=== PATIENT | female | born 1940 | race American Indian/Alaskan Native ===

== ENCOUNTER 2019-04-13 05:47 | Outpatient (CLI) | payer MEDICARE, MEDICAID | END 2019-04-13 05:48 | disposition home or self-care (01) | LOC: CARDIO 05:47 | DX: R07.9 Chest pain, unspecified (principal) ==

== ENCOUNTER 2019-04-20 09:31 | Inpatient (IN) | payer MEDICARE, MEDICAID ==
--- NOTE | 2019-04-20 10:19 | RAD ---
Date of service: 04/20/2019 HISTORY: chest pain COMPARISON: No prior. TECHNIQUE: 1 view obtained. FINDINGS: LUNGS: No active pulmonary disease. PLEURA: No significant pleural effusion identified, no pneumothorax apparent. CARDIOVASCULAR: No aortic atherosclerotic calcification present. Mild to moderate cardiomegaly no pulmonary vascular congestion. OSSEOUS STRUCTURES: No significant abnormalities. VISUALIZED UPPER ABDOMEN: Normal. OTHER FINDINGS: None. IMPRESSION: No active disease.
[2019-04-20] MEDS ORDERED: DOBUTamine 500mg/250ml D5W 500 MG/250 ML BAG IV PRN (10:20)
[2019-04-20 10:23] LABS: BASO # 0.02 K/mm3 (0.0-2.0); BASO % 0.4 % (0.0-3.0); EOS % 0.7 % (1.5-5.0); HEMOGLOBIN 8.7 g/dL (12.0-16.0); LYMPH # 0.9 (1.2-3.4); LYMPH % 16.2 % (22.0-35.0); MEAN CELL VOLUME 84.4 fl (80.0-105.0); MEAN CORPUSCULAR HEMOGLOBIN 27.6 pg (25.0-35.0); MEAN CORPUSCULAR HGB CONC 32.7 g/dl (31.0-37.0); MEAN PLATELET VOLUME 10.6 fl (7.0-11.0); MONO # 0.8 (0.1-0.6); MONO % 13.6 % (1.0-6.0); RBC 3.15 10^6/uL (3.5-6.1); RED CELL DISTRIBUTION WIDTH 14.4 % (11.5-14.5); WHITE BLOOD COUNT 5.5 10^3/uL (4.5-11.0)
[2019-04-20 10:32] LABS: ALB/GLOB RATIO 1.1 (1.1-1.8); ALBUMIN 3.4 g/dL (3.0-4.8); CALCIUM 8.6 mg/dL (8.4-10.5)
[2019-04-20 10:50] LABS: TROPONIN I 0.02 ng/mL
[2019-04-20 11:17] VITALS: BMI 22.6
[2019-04-20] MEDS: DOBUTamine 500mg/250ml D5W 500 MG/250 ML BAG IV PRN (11:36)
--- NOTE | 2019-04-20 14:29 | CON ---
DATE OF CONSULTATION: 04/20/2019 CARDIOLOGY CONSULTATION HISTORY: The patient is a 79-year-old woman, who presents with progressive fatigue and renal insufficiency. Her stress test done recently revealed an ejection fraction of 25% with multiple defects consistent with previous injury. In addition, she was found to have a creatinine of 2.3, which reveals progressive renal insufficiency. In addition, she suffers from atrial fibrillation, for which she was on Eliquis as well as diltiazem. Her cardiac risk factors include diabetes mellitus and hypercholesterolemia. SOCIAL HISTORY: Denies smoking. REVIEW OF SYSTEMS: Dominated by marked fatigue. PHYSICAL EXAMINATION: VITAL SIGNS: Blood pressure 158/88, the heart rate is in the 80s. NECK: Negative JVD. LUNGS: Decreased breath sounds bilaterally. CARDIAC: Heart reveals S1, S2. EXTREMITIES: 1 to 2+ edema. LABORATORY DATA: EKG reveals normal sinus rhythm with LVH and diffuse ST-T changes. BUN and creatinine are 49 and 2.3. Potassium is 3.3. The hemoglobin is 8.7. IMPRESSION: 1. Dilated cardiomyopathy. 2. Probably ischemic in nature. 3. Coronary artery disease. 4. Anemia. 5. Renal insufficiency. 6. Diabetes mellitus. 7. Hypercholesterolemia. 8. Hypertension. 9. Progressive lethargy consistent with low cardiac output syndrome. PLAN: Given these findings, the patient will be admitted and started on IV inotropic therapy. I have discussed this in detail with the patient, as well as the patient's daughter. We will continue her on her Eliquis as well as Cardizem. Juanjo Agustin MD
--- NOTE | 2019-04-20 14:38 | ED PDOC ---
Arrival/HPI - General Chief Complaint: Abnormal Labs Time Seen by Provider: 04/20/19 09:34 Historian: Patient - History of Present Illness Narrative History of Present Illness (Text): 04/20/19 14:40 A 79 year old female, whose past medical history includes hypertension, renal disorder, diabetes type 2, anemia, cardiac issues, dilated cardiomyopathy, brought in from the medical lab assistant, presents to the emergency department complaining of worsening renal function. Patient reports she was scheduled for elective cardiac catheterization today, however canceled due to GFR. Patient denies any other physical/symptomatic complaints. Past Medical History - Provider Review Nursing Documentation Reviewed: Yes - Infectious Disease Hx of Infectious Diseases: None - Reproductive Menopause: Yes - Cardiac Hx Cardiac Disorders: Yes Hx Hypertension: Yes - Pulmonary Hx Bronchitis: No Hx Chronic Obstructive Pulmonary Disease (COPD): No Hx Emphysema: No Hx Pneumonia: No Hx Sleep Apnea: No - Neurological Hx Dementia: No Hx Migraine: No Hx Parkinson's Disease: No Hx Seizures: No Hx Transient Ischemic Attacks (TIA): No - HEENT Hx HEENT Disorder: Yes Hx Blind: Yes - Renal Hx Renal Disorder: Yes - Endocrine/Metabolic Hx Diabetes Mellitus Type 2: Yes - Hematological/Oncological Hx Anemia: Yes Hx Blood Transfusions: Yes (R/T ANEMIA) Hx Blood Transfusion Reaction: No - Integumentary Hx Dermatological Disorder: No - Musculoskeletal/Rheumatological Hx Musculoskeletal Disorders: No - Gastrointestinal Hx Crohn's Disease: No Hx Diverticulitis: No Hx Gall Bladder Disease: No Hx Pancreatitis: No - Genitourinary/Gynecological Hx Sexually Transmitted Diseases: No - Psychiatric Hx Emotional Abuse: No Hx Physical Abuse: No Hx Substance Use: No - Surgical History Hx Appendectomy: No Hx Cholecystectomy: No Hx Coronary Stent: No - Anesthesia Hx Anesthesia Reactions: No Hx Malignant Hyperthermia: No - Suicidal Assessment Feels Threatened In Home Enviroment: No Family/Social History - Physician Review Nursing Documentation Reviewed: Yes Family/Social History: No Known Family HX Smoking Status: Never Smoked Hx Alcohol Use: No Hx Substance Use: No Allergies/Home Meds Allergies/Adverse Reactions: Allergies sacubitril [From Entresto] Allergy (Verified 04/17/19 16:23) ANAPHYLAXIS valsartan [From Entresto] Allergy (Verified 04/20/19 09:46) ANAPHYLAXIS haloperidol [From Haldol] Adverse Reaction (Verified 04/20/19 18:24) DIZZINESS risperidone [From Risperdal] Adverse Reaction (Verified 04/20/19 18:24) DIZZINESS Home Medications: Home Meds Medication Instructions Recorded Confirmed B Complex W-C No.20/Folic Acid 1 sgl PO DAILY 10/04/15 04/20/19 [Renal Caps Softgel] Furosemide [Lasix] 20 mg PO DAILY 08/18/16 04/20/19 Apixaban [Eliquis] 2.5 mg PO BID 07/13/17 04/20/19 Colesevelam HCl [Welchol] 3.75 gm PO DAILY 07/13/17 04/20/19 Linagliptin [Tradjenta] 5 mg PO DAILY 07/13/17 04/20/19 Diltiazem HCl [Diltiazem 24Hr Cd] 120 mg PO QAM 04/13/19 04/20/19 Patiromer Calcium Sorbitex 8.4 gm PO DAILY 04/13/19 04/20/19 [Veltassa] hydrALAZINE [Apresoline] 50 mg PO BID 04/13/19 04/20/19 Clopidogrel [Plavix] 75 mg PO QAM 04/17/19 04/20/19 Donepezil HCl [Aricept] 5 mg PO QPM 04/17/19 04/20/19 Ezetimibe [Zetia] 10 mg PO DAILY 04/17/19 04/20/19 Humulin 10 units SC QAM 04/17/19 04/20/19 Review of Systems - Physician Review All systems were reviewed & negative as marked: Yes - Review of Systems Constitutional: absent: Fevers Genitourinary Female: Other (worsening renal function) Physical Exam Vital Signs Reviewed: Yes Vital Signs Temp Pulse Resp BP Pulse Ox 04/20/19 12:57 100 H 19 150/76 95 04/20/19 12:08 91 H 18 157/76 H 95 04/20/19 11:47 83 19 135/88 96 04/20/19 11:36 84 135/88 04/20/19 09:50 98 F 80 18 158/88 H 96 Temperature: Afebrile Blood Pressure: Normal Pulse: Regular Respiratory Rate: Normal Appearance: Positive for: Well-Appearing, Non-Toxic, Comfortable, Other (thin) Pain Distress: None Mental Status: Positive for: Alert and Oriented X 3 - Systems Exam Head: Present: Atraumatic, Normocephalic Pupils: Present: PERRL Extroacular Muscles: Present: EOMI Conjunctiva: Present: Normal Mouth: Present: Moist Mucous Membranes Neck: Present: Normal Range of Motion Respiratory/Chest: Present: Clear to Auscultation, Good Air Exchange. No: Respiratory Distress, Accessory Muscle Use Cardiovascular: Present: Regular Rate and Rhythm, Murmurs (systolic), Normal S1, S2 Abdomen: No: Tenderness, Distention, Peritoneal Signs Back: Present: Normal Inspection Upper Extremity: Present: Normal Inspection. No: Cyanosis, Edema Lower Extremity: Present: Normal Inspection. No: Edema Neurological: Present: GCS=15, CN II-XII Intact, Speech Normal Skin: Present: Warm, Dry, Normal Color. No: Rashes Psychiatric: Present: Alert, Oriented x 3, Normal Insight, Normal Concentration Medical Decision Making ED Course and Treatment: 04/20/19 14:44 Impression: 79 year old female with worsening renal function. Plan: -- EKG -- Chest X-ray -- Lab -- Urinalysis -- Urine Chloride -- Reassess and disposition Progress Notes: EKG: Ordered, reviewed, and independently interpreted the EKG. Rate : 80 BPM Rhythm : NSR Interpretation : No ST-segment elevations or depressions, no T-wave inversions, normal intervals. Comparison : No previous EKG for comparison. 04/20/2019 10:15 Chest X-ray IMPRESSION: No active disease. Dictator: Jose Guadalupe Daniels MD - Lab Interpretations Lab Results: Troponin I 0.02 ng/mL D 04/20/19 10:00 Total Bilirubin 0.6 mg/dL (0.2-1.3) 04/20/19 10:00 AST 49 U/L (14-36) H 04/20/19 10:00 ALT 49 U/L (7-56) 04/20/19 10:00 Alkaline Phosphatase 161 U/L (38-126) H 04/20/19 10:00 Total Protein 6.6 g/dL (5.8-8.3) 04/20/19 10:00 Albumin 3.4 g/dL (3.0-4.8) 04/20/19 10:00 Globulin 3.2 gm/dL 04/20/19 10:00 Albumin/Globulin Ratio 1.1 (1.1-1.8) 04/20/19 10:00 - RAD Interpretation Radiology Orders: 04/20/19 09:47 CHEST PORTABLE [RAD] Stat - Medication Orders Current Medication Orders: Apixaban (Eliquis) 2.5 mg PO BID MAYUR; Protocol Clopidogrel Bisulfate (Plavix) 75 mg PO QAM [facility] Diltiazem HCl (Cardizem Cd) 120 mg PO QAM [facility] Donepezil HCl (Aricept) 5 mg PO QPM [facility] Famotidine (Pepcid) 10 mg PO DAILY [facility] Hydralazine HCl (Apresoline) 50 mg PO BID [facility] Dobutamine HCl/Dextrose (Dobutamine/Dextrose 5% 500mg/250ml) 500 mg in 250 mls @ 8.423 mls/hr IV .Q24H PRN; Protocol PRN Reason: TITRATE PER PROTOCOL Last Admin: 04/20/19 11:36 Dose: 5 mcg/kg/min, 8.423 mls/hr eMAR Start Stop Document 04/20/19 11:36 EQ (Rec: 04/20/19 11:40 EQ [id number]) Intravenous Solution Start Date 04/20/19 Start Time 11:40 MAR Pulse and Blood Pressure Document 04/20/19 11:36 EQ (Rec: 04/20/19 11:40 EQ [id number]) Pulse Pulse Rate (60-90) 84 Blood Pressure Blood Pressure (100/60-150/90) 135/88 Titration Intervention Document 04/20/19 11:36 EQ (Rec: 04/20/19 11:40 EQ [id number]) Titration Intake Waste Amount 0 Container Volume 250 Titration Dosing Titration Dose 5 IV Rate 8.423 Intake/Decrease Started Discontinued Medications Potassium Chloride (Potassium Chloride 10 Meq/100 Ml) 10 meq in 100 mls @ 100 mls/hr IVPB ONCE ONE Stop: 04/20/19 13:41 Last Admin: 04/20/19 13:09 Dose: 100 mls/hr eMAR Start Stop Document 04/20/19 13:09 EQ (Rec: 04/20/19 13:09 EQ [id number]) Intravenous Solution Start Date 04/20/19 Start Time 13:09 - Scribe Statement The provider has reviewed the documentation as recorded by the Ramy Olsen Provider Scribe Attestation: All medical record entries made by the Ramy were at my direction and personally dictated by me. I have reviewed the chart and agree that the record accurately reflects my personal performance of the history, physical exam, medical decision making, and the department course for this patient. I have also personally directed, reviewed, and agree with the discharge instructions and disposition. Disposition/Present on Arrival - Present on Arrival Any Indicators Present on Arrival: No History of DVT/PE: No History of Uncontrolled Diabetes: Yes Urinary Catheter: No History of Decub. Ulcer: No History Surgical Site Infection Following: None - Disposition Have Diagnosis and Disposition been Completed?: Yes Diagnosis: Systolic CHF, Acute renal failure Disposition: HOSPITALIZED Disposition Time: 09:50 Condition: FAIR
[2019-04-20] MEDS ORDERED: Pneumococcal 23-Valent Vaccine IM ONE (16:44)
[2019-04-20 17:09] LABS: OSMOLALITY,URINE 797 mosm/kg (300-1000)
--- NOTE | 2019-04-20 18:26 | CARD ---
APPROVED REPORT Date of service: 04/20/2019 EKG Measurement Heart [id number] <Conclusion> Normal sinus rhythm Left ventricular hypertrophy with repolarization abnormality Abnormal ECG
--- NOTE | 2019-04-20 22:44 | HP ---
DATE OF EXAM: 04/20/2019 HISTORY OF PRESENT ILLNESS: I was called to the ER to admit her. She comes in, in a shortness of breath type of scenario. Her marketing writer is Dr. Agustin, who is aware and I believe he started her on dobutamine already. She is with her daughter and she is uncomfortable with her breathing. She is on Apresoline, Aricept, Cardizem, she is on dobutamine IV, Eliquis, Pepcid, Plavix and potassium replacement. She had a cardiac cath done on 04/20/2019. She has a past medical history of having abnormal stress test. She is legally blind. A history of diabetes, kidney disease, coronary artery disease, cardiac arrhythmia, high cholesterol, hypertension, anemia, an VT 5 years ago. She had colon surgery about 10 years ago, cardiac stents, history of anemia, mild peripheral edema from time to time, blind right eye and blind left eye. She is currently resting comfortably in bed in the emergency room. We started her on a dobutamine drip and a cardiac cath. REVIEW OF SYSTEMS: No acute hearing issues, old. She is blind. No sore throat. No chest pain or palpitations. There is a little shortness of breath from time to time. No wheezes, rhonchi or rales. No cough. No nausea, vomiting, constipation or diarrhea. Occasional feet swelling. No skin issues that they know of. She has been there with her daughter, who really takes good care of her. PHYSICAL EXAMINATION VITAL SIGNS: She has a 99.2 temperature, 94 pulse, 18 respiratory rate, 95% O2 sat and 161/78 blood pressure. HEENT: Head is atraumatic, normocephalic. Throat is moist. NECK: Supple. HEART: Regular rate. LUNGS: Decreased breath sounds, but clear. ABDOMEN: Soft and nontender. Positive bowel sounds. EXTREMITIES: No edema at this time. SKIN: As far as I could I tell is intact. No rashes or ulcers appreciative. NEUROLOGIC: Alert and oriented x3. LYMPHATICS: Thyroid midline. No palpable appreciable lymphadenopathy. No JVD. LABORATORY DATA: So far she has 5.5 white count, 8.7 hemoglobin, 26.6 hematocrit and 181 platelets. An INR of 1.14. A 143 sodium; potassium 3.3, I gave her a K-rider; BUN is 49; creatinine 2.3, a little bit better than the other day; GFR is only 25; sugar is 223, I will put her on her diabetes coverage and insulin coverage; calcium 8.6; magnesium 1.9; total bili is 0.6; AST is 49; ALT is 49 and alk phos 161. Lactate dehydrogenase is 503. Total creatine kinase is 63. Troponin I is 0.02, total protein is 6.6 and albumin is 3.4. Triglycerides is 56 and cholesterol is 133. INR is 1.14. ASSESSMENT AND PLAN: So she is in congestive heart failure. She is on a dobutamine drip. She had a cardiac catheterization, abnormal stress test. We will consult Dr. Agustin. We will check her labs tomorrow, replace the potassium. Hopefully she will do very well. Junior Patterson DO
[2019-04-21 03:45] VITALS: RESP 20
[2019-04-21 07:45] LABS: ALB/GLOB RATIO 1.1 (1.1-1.8); ALBUMIN 3.1 g/dL (3.0-4.8); CALCIUM 8.6 mg/dL (8.4-10.5)
[2019-04-21] MEDS: diltiaZEM 120 mg/24 Hours CD Cap PO SCH (10:38)
--- NOTE | 2019-04-21 10:55 | PN ---
DATE: 04/21/2019 SUBJECTIVE: I saw her this morning in bed. She told me she is short of breath and feeling well. PHYSICAL EXAMINATION: VITAL SIGNS: She has a 97.3 temperature, 92 pulse, 158/78 blood pressure, 20 respiratory rate, 95% sat on room air. HEENT: Atraumatic, normocephalic. HEART: Regular rate LUNGS: Decreased breath sounds, but clear. ABDOMEN: Soft, nontender. EXTREMITIES: No edema. LABORATORY DATA: She has a 5.5 white count, 8.7 hemoglobin, 181 platelets. yesterday's labs for CBC. She has 144 sodium, potassium 3.5, we are going to give him the potassium. BUN is 45, creatinine 2.5, GFR is 19, sugar 226, calcium 8.6, phosphorous 3.1, magnesium 1.9, total bili is 0.5. AST is 33, ALT is 46, alk phos 137. Troponin I 0.02. Total protein is 5.9. MEDICATIONS: She is on Apresoline, Aricept, Cardizem, IV dobutamine, Eliquis, Pepcid, Plavix and potassium. ASSESSMENT AND PLAN: Continue aggressive care as for Cardiology for her dilated cardiomyopathy, congestive heart failure, coronary artery disease, anemia, renal insufficiency, diabetes. We get physical therapy involved, out of bed to chair, adjust the medications as per Cardiology. Junior Patterson DO MTDD
--- NOTE | 2019-04-21 15:23 | PN ---
DATE: 04/21/2019 CARDIOLOGY FOLLOWUP SUBJECTIVE: The patient denies change in her energy. She denies shortness of breath, on IV Cardizem. PHYSICAL EXAMINATION: VITAL SIGNS: Blood pressure is 177/90, heart rate is in the 90s. NECK: Negative JVD. HEART: S1, S2. LUNGS: Without rales. EXTREMITIES: No edema. LABORATORY DATA: Hemoglobin is 8.7. Chemistries, BUN and creatinine 45 and 2.5, glucose 226. IMPRESSION: 1. Ischemic dilated cardiomyopathy. 2. Coronary artery disease. 3. Diabetes mellitus. 4. Renal insufficiency. 5. Low cardiac output syndrome. PLAN: Given these findings, the patient's cardiac symptoms, symptomatology is not any better on IV Cardizem. We will keep on it for the next 24 hours. Her blood pressure needs to be better controlled. We will increase her 50 q.i.d. Juanjo Agustin MD
[2019-04-21] MEDS: DOBUTamine 500mg/250ml D5W 500 MG/250 ML BAG IV PRN (18:39)
[2019-04-21] MEDS: Insulin Reg-MEDIUM-Coverage SC SCH (22:43)
[2019-04-22 02:04] VITALS: TEMP 98
--- NOTE | 2019-04-22 08:38 | PQF ---
PROVIDER RESPONSE TEXT: Stage 3 REVIEWER QUERY TEXT: Kidney Disease, Chronic CKD Stage Chronic Kidney Disease (CKD) is documented in the Medical Record. Please specify the disease stage ( includes probable or suspected) Such as: -- Chronic kidney disease Stage 1 -- Chronic kidney disease Stage 2 -- Chronic kidney disease Stage 3 -- Chronic kidney disease Stage 4 -- Chronic kidney disease Stage 5 -- Chronic kidney disease Stage 5, requiring dialysis -- End Stage Renal Disease -- Other, please specify Stages are defined by the [employer] as follows: CKD Stage I GFR >= 90 ml / min per 1.73 m2 and persistent albuminuria CKD Stage 2 GFR between 60 and 89 with persistent albuminuria CKD Stage 3 GFR between 30 and 59 CKD Stage 4 GFR between 15 and 29 CKD Stage 5 GFR between <15 or End Stage Renal Disease The patient's Clinical Indicators include: Admitted with ARF, GFR 25. Please specify stage of CKD if known. Query created by: Vivian Philippe on 04/21/2019 1:29 PM Electronically signed by: Junior Patterson DO 04/22/2019 8:35 AM
--- NOTE | 2019-04-22 08:38 | PQF ---
PROVIDER RESPONSE TEXT: Chronic systolic REVIEWER QUERY TEXT: CHF Acuity and Type Congestive Heart Failure is documented in the Medical Record. Please document the type and acuity (in cludes probable or suspected) Such as: Type: -- Systolic -- Diastolic -- Combined -- Other, please specify Acuity: -- Acute -- Chronic -- Acute on chronic -- Other, please specify Also please document the underlying cause of the CHF (includes probable or suspected) The patient's Clinical Indicators include: Patient admitted with CHF, documented in the chart as systolic. Please specify acuity (acute, chronic, acute on chronic). Query created by: Vivian Philippe on 04/21/2019 1:33 PM Electronically signed by: Junior Patterson DO 04/22/2019 8:35 AM
[2019-04-22] MEDS: Insulin Reg-MEDIUM-Coverage SC SCH (08:51)
[2019-04-22] MEDS: diltiaZEM 120 mg/24 Hours CD Cap PO SCH (10:27)
[2019-04-22 10:28] VITALS: BP 140/80; PULSE 90
--- NOTE | 2019-04-22 11:12 | PN ---
DATE: 04/22/2019 SUBJECTIVE: I saw her in bed this morning. She seems to be doing a little bit better clinically. No shortness of breath. No chest pain. I understand she has been refusing blood tests which is going to help me. She has got CHF, ischemic dilated cardiomyopathy, CAD, anemia, CKD stage III and diabetes. OBJECTIVE: VITAL SIGNS: She has a 98 temperature, 65 pulse, 155/67 blood pressure, 20 respiratory rate 96% O2 sat. HEENT: Head is atraumatic, normocephalic. HEART: Regular rate. LUNGS: Decreased breath sounds. ABDOMEN: Soft. EXTREMITIES: No edema. LABORATORY DATA: Last labs on the 04/21/2019; 144 sodium, potassium 3.5, last blood sugar was 224. She is on coverage, calcium 8.6. AST is 33, ALT is 46, alk phos 137, last white count and hemoglobin was on the 04/20/2019, not sure why she is refusing the labs. She is on hydralazine, Aricept, Cardizem, dobutamine, Eliquis, Plavix, and potassium replacement as per Cardiology. We are going to get her off the dobutamine, I will find out when I could discharge her. We will check her labs tomorrow. Junior Patterson DO
[2019-04-22 12:13] VITALS: O2SAT 97
--- NOTE | 2019-04-22 12:15 | PN ---
DATE: 04/22/2019 SUBJECTIVE: The patient states the dobutamine did not increase her energy nor helped her breathing. However, speaking with the daughter, she feels that her movement and her breathing is markedly improved after IV dobutamine currently. PHYSICAL EXAMINATION: VITAL SIGNS: Currently, her blood pressure 155/67, heart rate is in the 80s. NECK: Negative JVD. LUNGS: Without rales. HEART: S1, S2. EXTREMITIES: Without edema. LABORATORY DATA: BUN and creatinine is 45 and 2.5 with a potassium is 3.5. The hemoglobin is 8.7. IMPRESSION: 1. Improved cardiac output syndrome on intravenous dobutamine. 2. Diabetes mellitus. 3. Renal insufficiency. 4. Coronary artery disease. 5. Dilated cardiomyopathy. PLAN: Given these findings, the patient and family are happy with the results of the dobutamine infusion. We will discontinue telemetry today. We will discontinue the dobutamine. From a cardiac perspective, the patient can be discharged. Followup and instructions have been given to the patient and the daughter in detail. Juanjo Agustin MD
== END 2019-04-22 11:52 | disposition home or self-care (01) | DRG 292 ==
LOC: ED 09:31 → ERH 10:52 → 2RSO 13:47
PROVIDERS: ADMIT Family Medicine; ATTEND Family Medicine
DX: I13.0 Hypertensive heart and chronic kidney disease with heart failure and stage 1 through stage 4 chronic kidney disease, or unspecified chronic kidney disease (principal); N17.9 Acute kidney failure, unspecified; I50.22 Chronic systolic (congestive) heart failure; N18.3 Chronic kidney disease, stage 3 (moderate); I42.0 Dilated cardiomyopathy; I25.5 Ischemic cardiomyopathy; I25.10 Atherosclerotic heart disease of native coronary artery without angina pectoris; E78.00 Pure hypercholesterolemia, unspecified; E11.22 Type 2 diabetes mellitus with diabetic chronic kidney disease; I48.91 Unspecified atrial fibrillation; D64.9 Anemia, unspecified; H54.8 Legal blindness, as defined in USA; I25.2 Old myocardial infarction; Z79.01 Long term (current) use of anticoagulants; Z79.02 Long term (current) use of antithrombotics/antiplatelets; Z95.5 Presence of coronary angioplasty implant and graft

== ENCOUNTER → 2019-04-20 | Day surgery (SDC) | payer MEDICARE, MEDICAID | LOC: SDSVAS 06:40 ==